=== PATIENT | female | born 1995 | race Caucasian/White ===

== ENCOUNTER 2018-06-14 07:53 | Outpatient (CLI) | payer BC ==
--- NOTE | 2018-06-14 10:52 | MRI ---
MRI RIGHT KNEE WITHOUT CONTRAST: HISTORY: M23.91, internal derangement of right knee. Fall 6 months ago with continued pain. COMPARISON: None. FINDINGS: Medial Meniscus: Intact. Lateral Meniscus: Intact. There is a mild intraligamentous degenerative of anterior cruciate ligament. There is subcortical cy st formation of the lateral margin of the femoral tunnel. The MCL and LCL are intact. Extensor Mechanism: The quadriceps tendon, patella, and patella tendon are intact. No significant Hoffa's fat pad edema. Cartilage: Patellofemoral Compartment: There is mild chondral fraying of the patellar apex seen best on the sagittal images. No full-thickn ess defect. Medial Compartment: Intact. Lateral Compartment: Intact. Muscles: Muscle signal bulk is normal. IMPRESSION: 1. 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 2. Grade II chondromalacia of patellar apex seen best on the sagittal images. POS: [facility]
== END 2018-06-14 07:54 | disposition home or self-care (01) ==
LOC: SCSMRI 07:53
PROVIDERS: ATTEND Orthopaedic Surgery
DX: M23.91 Unspecified internal derangement of right knee (principal); M22.41 Chondromalacia patellae, right knee; M25.811 Other specified joint disorders, right shoulder